=== PATIENT | female | born 1975 | race Caucasian/White ===

== ENCOUNTER 2020-01-04 09:53 | Day surgery (SDC) | payer OTHER ==
[2019-12-28 15:34] VITALS: BMI 26.5
[2020-01-04] MEDS ORDERED: fentaNYL CITRATE 250 MCG/5 ML VIAL ONE (12:05)
[2020-01-04] MEDS ORDERED: SUCCINYLCHOLINE CHLORIDE 200 MG/10 ML SYRINGE ONE (12:05)
[2020-01-04] MEDS ORDERED: MIDAZOLAM HCL 2 MG/2 ML SINGLE DOSE VIAL ONE (12:05)
[2020-01-04] MEDS ORDERED: PROPOFOL 20 ML ONE (12:05)
[2020-01-04] MEDS ORDERED: ROPIVACAINE HCL 0.5% 30ML VIAL ONE (12:12)
[2020-01-04] MEDS ORDERED: ceFAZolin SODIUM 1 GM VIAL ONE (12:23)
[2020-01-04] MEDS ORDERED: KETOROLAC TROMETHAMINE 30 MG/1 ML VIAL ONE (12:34)
[2020-01-04] MEDS ORDERED: DEXAMETHASONE SOD PHOSPHATE 4 MG/1 ML VIAL ONE (12:34)
[2020-01-04] MEDS ORDERED: ONDANSETRON 4 MG/2 ML VIAL ONE (12:34)
[2020-01-04] MEDS ORDERED: ONDANSETRON 4 MG/2 ML VIAL IVPUSH PRN (13:21)
[2020-01-04] MEDS ORDERED: ACETAMINOPHEN 1000 MG/100 ML VIAL (NON FORMULARY) IVPB ONE (13:21)
[2020-01-04] MEDS ORDERED: oxyCODONE HCL 5 MG TABLET PO PRN (13:21)
[2020-01-04 15:27] VITALS: BP 120/79; PULSE 82; TEMP 98
--- NOTE | 2020-01-05 08:31 | OP ---
DATE OF OPERATION: 01/04/2020 PREOPERATIVE DIAGNOSIS: Left wrist internal derangement/dorsal capsular syndrome, status post sprain. POSTOPERATIVE DIAGNOSES: 1. Left wrist dorsal capsular sprain with dorsal capsular syndrome. 2. Left wrist diffuse synovitis. 3. Partial lunotriquetral tear. OPERATIVE PROCEDURE: Left wrist operative arthroscopy with debridement of radiocarpal joint. SURGEON: Arik Pretty MD [employer] DRIVER: ELAN Hernandez ANESTHESIA: General. COMPLICATIONS: None. ESTIMATED BLOOD LOSS: Minimal. INDICATIONS FOR PROCEDURE: The patient presented with the above findings. She was indicated for operative procedure. The risks, benefits and alternatives were discussed with the patient at length. Proper informed consent was obtained. PROCEDURE: After proper identification of patient and correct operative site, patient was brought to the operating room, placed supine on the table. Prominences were well padded. General anesthesia was given. Intravenous antibiotics were given. Timeout procedure was performed. Left upper extremity was prepped and draped in usual sterile fashion. Well-padded tourniquet was placed with a sterile prep. Esmarch bandage to exsanguinate the left upper extremity. Tourniquet was inflated to 250 mmHg. Acumed wrist traction tower was used with all points of contact well padded and 10 pounds of inline traction. Arthroscopic portals were made with skin incision only and blunt dissection over the joint capsule. The 3-4 and 4-5 portals were made. A 2.7-mm arthroscope was used. Radiocarpal joint was first visualized, noted to have synovitis and some fraying on the radial dorsal aspect of the wrist. This was debrided with mechanical shaver. Scapholunate ligament was found to be intact. Significant dorsal capsular thickening and hypertrophy were noted in this area dorsal to the scapholunate interval and the lunotriquetral interval. This was debrided with the mechanical shaver to debulk the area. 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 Partial tearing of the lunotriquetral ligament was noted and this was debrided with mechanical shaver. TFCC was found to be intact. Trampoline effect was normal. The area observed was stable. Scapholunate and lunotriquetral intervals were stable. Synovectomy was performed of any inflamed tissue that was present especially on the dorsal aspect of the wrist. The wounds were irrigated and repaired with 4-0, 5-0 and plain gut suture. Sterile dressings were applied. Patient was reversed from anesthesia, brought to recovery room in stable condition. Anjel Hernandez, the coding assistant, was integral throughout the procedure. Procedure could not have been performed without a skilled operative coding assistant. ARIK PRETTY M.D. [id number]
== END 2020-01-04 15:27 | disposition home or self-care (01) ==
LOC: FASU 09:53
PROVIDERS: ATTEND Orthopaedic Surgery Hand Surgery
PROC: 0RBP4ZZ Excision of Left Wrist Joint, Percutaneous Endoscopic Approach (ICD-10-PCS; principal; 2020-01-04 12:40)
DX: S63.522A Sprain of radiocarpal joint of left wrist, initial encounter (principal); S63.511A Sprain of carpal joint of right wrist, initial encounter; X58.XXXA Exposure to other specified factors, initial encounter; Y93.9 Activity, unspecified; Y92.9 Unspecified place or not applicable; M65.88 Other synovitis and tenosynovitis, other site
CPT/HCPCS: 84703; 94760

== ENCOUNTER 2020-01-14 14:13 | Emergency (ER) | payer OTHER ==
[2020-01-14 14:34] VITALS: BP 113/76; PULSE 82; TEMP 98.5; BMI 26.5
[2020-01-14] MEDS ORDERED: ACETAMINOPHEN 500 MG TABLET (FP) PO ONE (14:34)
[2020-01-14] MEDS ORDERED: ACETAMINOPHEN 500 MG TABLET (FP) ONE (14:36)
--- NOTE | 2020-01-14 14:38 | PDOC ---
Documentation entered by Megan Zuluaga SCRIBE, acting as scribe for Reyna Perry DO. Reyna Perry DO: This documentation has been prepared by the favianibe, Megan Zuluaga SCRIBE, under my direction and personally reviewed by me in its entirety. I confirm that the documentation accurately reflects all work, treatment, procedures, and medical decision making performed by me. History of Present Illness - General Chief Complaint: Revisit,Wound Recheck Stated Complaint: LEFT WRIST WOUND CHECK Time Seen by Provider: 01/14/20 14:22 History Source: Patient Exam Limitations: No Limitations - History of Present Illness Initial Comments: 01/14/20 14:58 The patient is a 44-year-old female with past medical history significant for s/p L. wrist arthroscopy with debridement of radiocarpal joint (01/[address] Lizama) and cervical spine herniation (s/p an accident at work) who presents to the emergency department with left wrist pain. The patient reports she was taking out a gallon of juice from the fridge when the bottle slipped and she used her left hand to block the bottle from falling. The patient reports she felt a pulling near the surgical site and increased burning sensation. The patient reports there was mild burning sensation to the surgical site since the surgery, however, it was increased today following the incident. The patient reports she noticed redness inside the dressing and thought it was bleeding and decided to be evaluated and reports associated symptoms of pain radiating up the left forearm. The patient reports the surgical dressing hasn't been changed since the surgery 10 days ago. The patient reports follow up appointment with Dr. Chan is Thursday (01/16). Denies taking any pain medication today. Allergies: NKA Surgical history: Hysterectomy (5 years ago) PCP: Dr. Shelly Bueno. Past History - Medical History Allergies/Adverse Reactions: Allergies Allergy/AdvReac Type Severity Reaction Status Date / Time No Known Allergies Allergy Verified 01/04/20 10:25 Home Medications: Ambulatory Orders Cyclobenzaprine HCl 5 mg PO BID PRN 08/10/19 Tylenol Arthritis 1 tab PO BID PRN 08/10/19 Anemia: No Asthma: No Cancer: Yes Cardiac Disorders: No CVA: No COPD: No CHF: No Dementia: No Diabetes: No GI Disorders: Yes (HX GERD,GASTRITIS) Disorders: No HTN: No Hypercholesterolemia: No Liver Disease: No Seizures: No Thyroid Disease: No - Surgical History Abdominal Surgery: No Appendectomy: No Cardiac Surgery: No Cholecystectomy: No Lung Surgery: No Neurologic Surgery: No Orthopedic Surgery: Yes (Right Rotator Cuff Repair) - Psycho-Social/Smoking History Smoking History: Never smoked Have you smoked in the past 12 months: No Review of Systems - Review of Systems Able to Perform ROS?: Yes Comments:: 01/14/20 15:00 GENERAL/CONSTITUTIONAL: No fever or chills. No weakness. HEAD, EYES, EARS, NOSE AND THROAT: No change in vision. No ear pain or discharg e. No sore throat. GASTROINTESTINAL: No nausea, vomiting, diarrhea or constipation. GENITOURINARY: No dysuria, frequency, or change in urination. CARDIOVASCULAR: No chest pain or shortness of breath. RESPIRATORY: No cough, wheezing, or hemoptysis. MUSCULOSKELETAL: +left wrist pain and burning sensation. Pain radiates up left forearm. No elbow pain. No other joint or muscle swelling or pain. No neck or back pain. SKIN: No rash NEUROLOGIC: No headache, vertigo, loss of consciousness, or change in strength/sensation. ENDOCRINE: No increased thirst. No abnormal weight change. HEMATOLOGIC/LYMPHATIC: No anemia, easy bleeding, or history of blood clots. ALLERGIC/IMMUNOLOGIC: No hives or skin allergy. *Physical Exam - Physical Exam 01/14/20 15:01 Constitutional: Awake, alert, oriented. No acute distress. Head: Normocephalic. Atraumatic Eyes: PERRL. EOMI. Conjunctivae are not pale. ENT: Mucous membranes are moist and intact. Posterior pharynx without exudate or erythema. Neck: Supple. Full ROM. No lymphadenopathy. Cardiovascular: Regular rate. Regular rhythm. S1, S2 regular. Distal pulses are 2+ and symmetric. Pulmonary/Chest: No evidence of respiratory distress. Clear to auscultation bilaterally No wheezing, rales or rhonchi. Abdominal: Soft and nondistended. There is no tenderness. No rebound, guarding or rigidity. No palpable masses. Good bowel sounds. Back: No CVA tenderness. Musculoskeletal: No edema. No cyanosis. No clubbing. No calf tenderness. Radial/pedal pulses are intact and 2+ bilaterally Skin: Skin is warm and dry. No petechiae. No purpura. Extremities: Left wrist: arthroscopic incision to the dorsal side of the wrist with ecchymosis and tenderness over the wrist. No new soft tissue swelling, erythema, warmth or drainage from the incision. Full range of motion of the hand. 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 limited flexion and extension of the wrist. limited range of motion. Palpation of the radial nerve through the extensor tendon and proximal forearm reproducible with pain. Able to flex and extend the elbow without difficulty. Radial pulses intact, brisk cap refill. Sensation intact. Neurological: Ambulates with a steady gait. Alert and oriented to person, place, and time. Cranial nerves II-XII are grossly intact. Normal speech. Psychiatric: Good eye contact. Normal interaction, affect and behavior. Medical Decision Making - Medical Decision Making 01/14/20 14:36 a/p: 44yo female with recent L wrist sx from a wrist sprain with an injury to the site this AM - was picking up a jug and it was slipping so she put her L hand under the jug to catch it -pt is s/p arthroscopic sx to the L wrist with Dr. Lizama -pt has not removed the dressing since the sx or moved her wrist at all -dressing removed with 2 small laproscopic incision that are well healed and approx, no warmth or drainage, no edema or erythema -limited ROM and pain with ROM given recent sx -states burning sensation along the wrist and up her arm - follows the radial nerve pattern -sensation intact, brisk cap refill -pt with ecchymosis to the surgical site, but is well healing and approx -will send for xray, dressing change, tylenol, ice 01/14/20 15:33 prelim xray does not show any fx pt states feeling better pt has appt for thursday with Dr. Lizama will place a dressing over the healing incisions stable for dc to home discussed ice at home and tylenol for pain at home discussed xray limitations and will not eval ligaments/tendons or nerves answered all questions. Discharge - Discharge Information Problems reviewed: Yes Clinical Impression/Diagnosis: Post-op pain, Wrist pain Condition: Stable Disposition: HOME - Admission No - Follow up/Referral Referrals: Onel Lizama MD [Staff Physician] - - Patient Discharge Instructions Patient Printed Discharge Instructions: How to Care for a Surgical Wound Additional Instructions: You may apply ice 20 min on and 20 min off. You may take tylenol as needed for pain. Please keep your appointment for thursday as previously scheduled with Dr. Lizama. Please return to the ER with any further questions or concerns. - Post Discharge Activity
== END 2020-01-14 15:41 | disposition home or self-care (01) ==
LOC: SUPCPDRO 14:13 → FER 14:13
DX: M25.532 Pain in left wrist (principal)
CPT/HCPCS: 73110-TC-LT-FY; 73130-TC-LT-FY; 99283-25

== ENCOUNTER 2021-02-13 06:59 | Day surgery (SDC) | payer OTHER ==
[2021-02-12 10:37] VITALS: BMI 26.4
[2021-02-13] MEDS ORDERED: SUCCINYLCHOLINE CHLORIDE 200 MG/10 ML SYRINGE ONE (08:56)
[2021-02-13] MEDS ORDERED: PROPOFOL 20 ML ONE ×2 (08:56)
[2021-02-13] MEDS ORDERED: MIDAZOLAM HCL 2 MG/2 ML SINGLE DOSE VIAL ONE (08:56)
[2021-02-13] MEDS ORDERED: ONDANSETRON 4 MG/2 ML VIAL ONE (09:06)
[2021-02-13] MEDS ORDERED: KETOROLAC TROMETHAMINE 30 MG/1 ML VIAL ONE (09:06)
[2021-02-13] MEDS ORDERED: DEXAMETHASONE SOD PHOSPHATE 4 MG/1 ML VIAL ONE (09:06)
[2021-02-13 09:57] VITALS: PULSE 67; TEMP 98
[2021-02-13 10:19] VITALS: BP 117/77
== END 2021-02-13 10:20 | disposition home or self-care (01) ==
LOC: FASU 06:59
PROVIDERS: ATTEND Orthopaedic Surgery Hand Surgery
PROC: 0LN70ZZ Release Right Hand Tendon, Open Approach (ICD-10-PCS; principal; 2021-02-13 09:15)
DX: M65.311 Trigger thumb, right thumb (principal)
CPT/HCPCS: 81025

== ENCOUNTER 2021-06-27 06:07 | Day surgery (SDC) | payer OTHER ==
[2021-06-19 12:24] VITALS: BMI 27.1
[2021-06-27] MEDS ORDERED: EPINEPHrine 1:1,000 1,000 MCG/ML ML ONE (07:20)
[2021-06-27] MEDS ORDERED: ROPIVACAINE HCL/PF 100 MG/20 ML VIAL ONE ×2 (07:43)
[2021-06-27] MEDS ORDERED: MIDAZOLAM HCL 2 MG/2 ML SINGLE DOSE VIAL ONE ×2 (07:43→08:03)
[2021-06-27] MEDS ORDERED: PROPOFOL 20 ML ONE (08:06)
[2021-06-27] MEDS ORDERED: ceFAZolin SODIUM 1 GM VIAL ONE (08:20)
[2021-06-27] MEDS ORDERED: ePHEDrine SULFATE 50 MG/1 ML AMPULE ONE (08:21)
[2021-06-27] MEDS ORDERED: LIDOCAINE 1%/EPI 1:100000 (20 ML MULTI DOSE VIAL) ONE (08:55)
[2021-06-27] MEDS ORDERED: LACTATED RINGERS SOLUTION 1,000 ML IV SCH (10:15)
[2021-06-27] MEDS ORDERED: PROMETHAZINE HCL 25 MG/1 ML VIAL IVPUSH PRN (10:15)
[2021-06-27] MEDS ORDERED: ONDANSETRON 4 MG/2 ML VIAL IVPUSH PRN (10:15)
[2021-06-27] MEDS ORDERED: oxyCODONE HCL 5 MG TABLET PO PRN (10:15)
[2021-06-27 11:28] VITALS: TEMP 97.7
[2021-06-27 12:20] VITALS: BP 112/65; PULSE 96
== END 2021-06-27 12:20 | disposition home or self-care (01) ==
LOC: FASU 06:07
PROVIDERS: ATTEND Orthopaedic Surgery Sports Medicine
PROC: 0RBK4ZZ Excision of Left Shoulder Joint, Percutaneous Endoscopic Approach (ICD-10-PCS; principal; 2021-06-27 08:35)
PROC: 0LS44ZZ Reposition Left Upper Arm Tendon, Percutaneous Endoscopic Approach (ICD-10-PCS; 2021-06-27 08:35)
DX: M75.42 Impingement syndrome of left shoulder (principal); M75.22 Bicipital tendinitis, left shoulder
CPT/HCPCS: 88304-TC; 94760